=== PATIENT | female | born 1990 | race Caucasian/White ===

== ENCOUNTER 2017-11-09 11:37 | Emergency (ER) | payer BC, OTHER ==
[~2017-11-09] VITALS: Ht 170.2 cm; Wt 104.3 kg
[~2017-11-09 11:37] MED LIST: AMOX500C2 PO; BCP PO
[2017-11-09] MEDS ORDERED: METH-313 PO (12:00)
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
[2017-11-09 12:33] VITALS: BP 136/86
== END 2017-11-09 12:34 | disposition home or self-care (01) ==
LOC: EDUNIT# 11:37 → ER 11:40
DX: S16.1XXA Strain of muscle, fascia and tendon at neck level, initial encounter (principal); R40.2142 Coma scale, eyes open, spontaneous, at arrival to emergency department; R40.2252 Coma scale, best verbal response, oriented, at arrival to emergency department; R40.2362 Coma scale, best motor response, obeys commands, at arrival to emergency department; Z88.5 Allergy status to narcotic agent; V49.40XA Driver injured in collision with unspecified motor vehicles in traffic accident, initial encounter; Y92.410 Unspecified street and highway as the place of occurrence of the external cause
CPT/HCPCS: 70450; 72125; 72128